=== PATIENT | male | born 1950 | race Hispanic/Latino ===

== ENCOUNTER 2017-04-27 06:48 | Day surgery (SDC) | payer MEDICARE ==
[2017-04-27 07:30] VITALS: BMI 20.9
--- NOTE | 2017-04-27 08:51 | CP.SDSHP ---
Same Day Surgery H & P - History Proposed Procedure: EGD, REMOVAL OF GASTRIC F.B. Pre-Op Diagnosis: SEE NOTES - Previous Medical/Surgical History Cardiac: Hypertension, Hx of CHF Pulmonary: Asthma Neuro: Other Misc: Other Previous Surgical History: S/P. PEG - Allergies Allergies: Allergies No Known Allergies Allergy (Verified 04/27/17 07:30) - Physical Exam General Appearance: N Vital Signs: Vital Signs 04/27/17 07:00 Temperature 97.5 F L Pulse Rate 80 Respiratory 20 Rate Blood Pressure 123/80 O2 Sat by Pulse 98 Oximetry Mental Status: Alert & Oriented x3 Neuro: WNL Heart: Other Lungs: Other GI: WNL - {Optional Preform as Required} Breast: WNL Abdomen: Other Rectal: Other Integument: WNL : WNL Ortho: Other ENT: WNL - Impression Pt. Evaluated Today:Candidate for Anesthesia & Procedure: Yes - Date & Time Time: 08:51 Short Stay Discharge - Short Stay Discharge Admitting Diagnosis/Reason for Visit: ENCOUNTER FOR ATTENTION TO GASTROSTOMY Disposition: HOME/ ROUTINE
[2017-04-27] MEDS ORDERED: metroNIDAZOLE IV 500 mg/100 ml 250 MG in Premixed IV 1 EA IVPB STA (08:52)
[2017-04-27] MEDS ORDERED: Propofol 10 mg/ml Inj (20 ML) ONE (08:55)
[2017-04-27 10:02] VITALS: TEMP 98.6
[2017-04-27 10:03] VITALS: O2SAT 100
[2017-04-27 12:24] VITALS: RESP 21
[2017-04-27 12:27] VITALS: BP 120/75; PULSE 96
== END 2017-04-27 12:12 | disposition home or self-care (01) ==
LOC: C.ENDO 06:48
PROVIDERS: ATTEND Specialist
DX: Z43.1 Encounter for attention to gastrostomy (principal); K21.0 Gastro-esophageal reflux disease with esophagitis; K44.9 Diaphragmatic hernia without obstruction or gangrene
CPT/HCPCS: 43247; 88300; J0696; J2704

== ENCOUNTER 2017-04-29 22:28 | Inpatient (IN) | payer MEDICARE ==
[2017-04-29 22:28] VITALS: BMI 20.9
--- NOTE | 2017-04-29 23:11 | C.PDOC ---
History Of Present Illness Patient sent to the ER from long term for abnormal blood work, he also complains of left flank pain, associated with painful and bloody urination. Patient reports he had his peg tube removed yesterday and tolerated the procedure well. Denies fever or chills. Time Seen by Provider: 04/29/17 23:11 Chief Complaint (Nursing): Abnormal Labs History Per: Patient History/Exam Limitations: no limitations Onset/Duration Of Symptoms: Hrs Current Symptoms Are (Timing): Still Present Severity: Moderate Pain Scale Rating Of: 4 Reports Recently: Treated By A Physician, Hospitalized Recent travel outside of the [place]: No Additional History Per: Patient Past Medical History Reviewed: Historical Data, Nursing Documentation, Vital Signs Vital Signs: Last Vital Signs Temp 97.7 F 04/29/17 22:31 Pulse 91 H 04/29/17 22:31 Resp 16 04/29/17 22:31 BP 120/76 04/29/17 22:31 Pulse Ox 96 04/29/17 23:59 - Medical History PMH: Anxiety, Cardia Arrhythmia (ATRIAL FIBRILLATION), Depression, HTN, Pneumonia (KLEBSIELLA), Chronic Kidney Disease, TIA (UNCONFIRMED BY DIAGNOSTICS) Surgical History: Endoscopy (WITH PEG) Family History: States: No Known Family Hx - Social History Hx Alcohol Use: No Hx Substance Use: No - Immunization History Hx Tetanus Toxoid Vaccination: Yes Hx Influenza Vaccination: Yes Hx Pneumococcal Vaccination: Yes Review Of Systems Constitutional: Negative for: Fever, Chills Gastrointestinal: Negative for: Abdominal Pain Genitourinary: Positive for: Dysuria, Hematuria Musculoskeletal: Positive for: Back Pain (Left flank) Physical Exam - Physical Exam Appears: Non-toxic Skin: Warm, Dry Head: Normacephalic Eye(s): bilateral: Normal Inspection Oral Mucosa: Moist Neck: Supple, Other (Trach in place) Chest: Symmetrical, No Tenderness Cardiovascular: Rhythm Regular Respiratory: No Rales, No Rhonchi, No Wheezing Gastrointestinal/Abdominal: Soft, No Tenderness, Other (Opening from peg site, no erythema or drainage from the site.) Back: No CVA Tenderness Male Genital: No Testicular Tenderness, No Inguinal Tenderness Extremity: No Tenderness Extremity: Bilateral: Atraumatic Pulses: Left Dorsalis Pedis: Normal, Right Dorsalis Pedis: Normal Neurological/Psych: Oriented x3 Gait: Unable To Assess ED Course And Treatment - Laboratory Results Result Diagrams: 04/29/17 23:35 ECG: Interpreted By Me, Viewed By Me ECG Rhythm: Sinus Rhythm (93), Nonspecific Changes O2 Sat by Pulse Oximetry: 96 Pulse Ox Interpretation: Normal - Radiology CXR: Interpreted by Me, Viewed By Me CXR Interpretation: Yes: Other (trach in place, rul consolidation(chronic)). No : COPD, Fracture Progress Note: Blood work, EKG, urinalysis, and CXR ordered. Disposition Discussed With Dr.: Sylvia Reid Comment: accepted the pt on his service and took over the care at 2 AM Doctor Will See Patient In The: Hospital Counseled Patient/Family Regarding: Studies Performed, Diagnosis - Disposition Disposition: HOSPITALIZED Disposition Time: 23:11 Condition: FAIR Forms: [facility] (Salvadorean) - POA Present On Arrival: None - Clinical Impression Clinical Impression: Hematuria, Flank pain, Cystitis - Scribe Statement The provider has reviewed the documentation as recorded by the Scribe Jose Baires All medical record entries made by the Scribe were at my direction and personally dictated by me. I have reviewed the chart and agree that the record accurately reflects my personal performance of the history, physical exam, medical decision making, and the department course for this patient. I have also personally directed, reviewed, and agree with the discharge instructions and disposition. Decision To Admit - Pt Status Changed To: Hospital Disposition Of: Inpatient - Admit Certification Admit to Inpatient:: After my assessment, the patient will require hospitalization for at least two midnights. This is because of the severity of symptoms shown, intensity of services needed, and/or the medical risk in this patient being treated as an outpatient. - InPatient: Physician Admission Certification: I certify that this patient requires 2 or more midnights of care for the following reason:: After my assessment, the patient will require hospitalization for at least two midnights. This is because of the severity of symptoms shown, intensity of services needed, and/or the medical risk in this patient being treated as an outpatient. - . Bed Request Type: Regular Admitting Physician: Sylvia Reid Patient Diagnosis: Hematuria, Flank pain, Cystitis
[2017-04-29 23:40] LABS: VENOUS BLOOD GAS PCO2 44 mmHg (40-60); VENOUS BLOOD GAS PO2 41 mm/Hg (30-55); VENOUS BLOOD PH 7.44 (7.32-7.43)
[2017-04-29 23:46] LABS: BASO # 0.1 K/uL (0.0-0.2); BASO % 0.5 % (0.0-2.0); EOS # 0.1 K/uL (0.0-0.7); EOS % 1.1 % (0.0-4.0); LYMPH # 3.6 K/uL (1.0-4.3); LYMPH % 27.5 % (20.0-40.0); MEAN CELL VOLUME 79.5 fL (80.0-94.0); MEAN CORPUSCULAR HEMOGLOBIN 26.6 pg (27.0-31.0); MEAN CORPUSCULAR HGB CONC 33.4 g/dL (33.0-37.0); MEAN PLATELET VOLUME 7.6 fL (7.2-11.7); MONO # 0.8 K/uL (0.0-0.8); MONO % 6.5 % (0.0-10.0); NEUT # 8.4 K/uL (1.8-7.0); NEUT % 64.4 % (50.0-75.0); NRBC % 0.3 % (0.0-2.0); RBC 4.89 Mil/uL (4.40-5.90); RED CELL DISTRIBUTION WIDTH 17.7 % (11.5-14.5); WHITE BLOOD COUNT 13.1 K/uL (4.8-10.8)
[2017-04-29 23:56] LABS: INR 1.2
[2017-04-30] MEDS ORDERED: Sodium Chloride 0.9% 1,000 ML IV ONE (00:52)
--- NOTE | 2017-04-30 01:46 | CT ---
EXAM: CT Abdomen and Pelvis Without Intravenous Contrast CLINICAL HISTORY: 66 years old, male; Pain; Abdominal pain; Additional info: Left flank pain, hematuria TECHNIQUE: Axial computed tomography images of the abdomen and pelvis without intravenous contrast. All CT scans at this facility use one or more dose reduction techniques, viz.: automated exposure control; ma/kV adjustment per patient size (including targeted exams where dose is matched to indication; i.e. head); or iterative reconstruction technique. 664 images are submitted.Limitations: Absence of IV contrast decreases sensitivity for detecting vascular and visceral injury and abnormality. Coronal and sagittal reformatted images were created and reviewed. COMPARISON: No relevant prior studies available. FINDINGS: Lower thorax: Small right lower effusion. There is mild bronchiectasis in the right middle lobe and bilateral lower lobes right more than left. There is right lower lobe consolidation and infiltrate with architectural distortion. These findings can represent sequela of chronic lung disease versus chronic aspiration. Correlation with clinical data is recommended if an acute pulmonary process pneumonia is clinically suspected. ABDOMEN:Limitations: Absence of IV contrast decreases sensitivity for detecting vascular and visceral injury and abnormality. Liver: Enlarged liver. Gallbladder and bile ducts: Partially distended gallbladder with hyperdense gallstones. Pancreas: Unremarkable. No ductal dilation. Spleen: Splenomegaly measuring 15 cm. Adrenals: Nonspecific thickening of the left adrenal gland. Normal right adrenal gland. Kidneys and ureters: There is moderate left hydroureteronephrosis without a calcified ureteral stone likely due to ureteral obstruction at the level of UVJ secondary to bladder mass versus edema. Unremarkable right kidney. Stomach and bowel: There are nonspecific fluid filled small bowel loops. These findings can represent ileus versus enteritis versus slow transit versus peristalsis. Moderate amount of stool in the colon. Nonspecific colonic wall thickening. Correlation with patient's clinical history of constipation versus stool related colitis versus under distention is recommended. Nonspecific gastric thickening likely due to under distention. Correlation with clinical data is recommended if gastritis is suspected. Appendix: Normal appendix. PELVIS: Bladder: There is diffuse bladder wall thickening measuring 2.8 cm with perivesical inflammatory change. The differential considerations would include cystitis versus transitional cell carcinoma. Reproductive: Unremarkable. ABDOMEN and PELVIS: Intraperitoneal space: Unremarkable. No free air. No significant fluid collection. Bones/joints: Multilevel vacuum degenerative disc disease. No acute fracture. No dislocation. Soft tissues: Unremarkable. Vasculature: The aorta demonstrates calcified plaque and is mildly ectatic but normal in caliber. No abdominal aortic aneurysm. Lymph nodes: Unremarkable. No enlarged lymph nodes. IMPRESSION: 1. There is diffuse bladder wall thickening measuring 2.8 cm with perivesical inflammatory change. The differential considerations would include cystitis versus transitional cell carcinoma. 2. There is moderate left hydroureteronephrosis without a calcified ureteral stone likely due to ureteral obstruction at the level of UVJ secondary to bladder mass versus edema. 3. Small right lower effusion. There is mild bronchiectasis in the right middle lobe and bilateral lower lobes right more than left. There is right lower lobe consolidation and infiltrate with architectural distortion. These findings can represent sequela of chronic lung disease versus chronic aspiration. Correlation with clinical data is recommended if an acute pulmonary process pneumonia is clinically suspected. 4. Partially distended gallbladder with gallstones. 5. Splenomegaly. Hepatomegaly. Correlation with internal medicine urology clinical history and evaluation and further workup or followup as recommended by patient's clinical data.
[2017-04-30 01:48] LABS: URINE BILIRUBIN NEGATIVE (NEGATIVE); URINE BLOOD 3+ (NEGATIVE); URINE CLARITY Hazy (Clear); URINE COLOR Red (YELLOW); URINE GLUCOSE (UA) NORMAL (Normal); URINE LEUKOCYTE ESTERASE 3+ Leu/uL (Negative); URINE NITRATE NEGATIVE (NEGATIVE); URINE PROTEIN 2+ mg/dL (NEGATIVE); URINE UROBILINOGEN NORMAL mg/dL (0.2-1.0); WBC CLUMPS MANY /hpf
[2017-04-30] MEDS ORDERED: Piperacillin/Tazobact 3.375 gm 100 ML IVPB STA (01:59)
[2017-04-30] MEDS ORDERED: Piperacill/Tazo 3.375gm in Dex 3.375 GM/50 ML BAG IVPB STA (02:05)
[2017-04-30] MEDS ORDERED: guaiFENesin DM 100 mg-10 mg/5 ml UD PO PRN (03:01)
[2017-04-30 03:12] LABS: ALBUMIN 3.7 g/dL (3.5-5.0); ALT/SGPT 7 U/L (21-72); AST/SGOT 19 U/L (17-59); BLOOD UREA NITROGEN 23 mg/dL (9-20); CALCIUM 11.5 mg/dl (8.6-10.4); GFR AFRICAN-AMERICAN > 60; GFR NON-AFRICAN AMERICAN > 60
[2017-04-30 03:17] LABS: ALB/GLOB RATIO 0.7 (1.0-2.1)
--- NOTE | 2017-04-30 07:31 | RAD ---
PROCEDURE: CHEST RADIOGRAPH, 1 VIEW HISTORY: SOB COMPARISON: None available. FINDINGS: LUNGS: Large cavitary mass right upper lobe. Although portable x-ray can be someone imprecise, the finding measures 9.3 x 18 cm. PLEURA: No pneumothorax or pleural fluid seen. CARDIOVASCULAR: Normal. OSSEOUS STRUCTURES: No significant abnormalities. VISUALIZED UPPER ABDOMEN: Normal. OTHER FINDINGS: Satisfactory position of tracheostomy device. IMPRESSION: Large cavitary mass right upper lobe.
[2017-04-30] MEDS ORDERED: guaiFENesin DM 200 mg-20 mg/10 ml UD ONE (08:35)
[2017-04-30] MEDS ORDERED: Albuterol-Ipratrop 3 mg / 0.5 (3 ml) UD ONE (09:54)
[2017-04-30] MEDS ORDERED: Enoxaparin 40 mg Syringe ONE (10:23)
[2017-04-30] MEDS: Enoxaparin 40 mg Syringe SC SCH (10:38)
[2017-04-30] MEDS: Metoprolol Succinate 50 mg XL Tab PO SCH ×2 (10:38→22:11)
[2017-04-30] MEDS: Albuterol 0.083% Inhal Sol (2.5 mg/3 mL) UD IH SCH ×2 (12:13→16:39)
[2017-04-30] MEDS ORDERED: Oxycodone/Acetaminophen 5/325 mg Tab ONE (14:13)
[2017-04-30] MEDS: Oxycodone/Acetaminophen 5/325 mg Tab PO PRN (14:13)
[2017-04-30] MEDS: Sodium Chloride 0.9% 1,000 ML IV SCH (18:20)
--- NOTE | 2017-04-30 21:53 | CP.PCM.HP ---
Past Patient History - Past Medical History & Family History Past Medical History?: Yes - Past Social History Smoking Status: Former Smoker - CARDIAC Hx Cardia Arrhythmia: Yes (ATRIAL FIBRILLATION) Hx Hypertension: Yes - PULMONARY Hx Pneumonia: Yes (KLEBSIELLA) - NEUROLOGICAL Hx Transient Ischemic Attacks (TIA): Yes (UNCONFIRMED BY DIAGNOSTICS) - HEENT Hx HEENT Problems: No Hx Difficulty Chewing: No - RENAL Hx Chronic Kidney Disease: Yes - ENDOCRINE/METABOLIC Hx Endocrine Disorders: No - HEMATOLOGICAL/ONCOLOGICAL Hx Blood Disorders: No Hx Blood Transfusions: No - INTEGUMENTARY Hx Dermatological Problems: Yes Other/Comment: DRY SCALINESS BLE - MUSCULOSKELETAL/RHEUMATOLOGICAL Hx Fractures: No - GASTROINTESTINAL Hx Gastrointestinal Disorders: Yes 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) - GENITOURINARY/GYNECOLOGICAL Hx Genitourinary Disorders: Yes Hx Incontinence: Yes Hx Urinary Tract Infection: No - PSYCHIATRIC Hx Anxiety: Yes Hx Depression: Yes Hx Substance Use: No - SURGICAL HISTORY Hx Surgeries: Yes Other/Comment: DENTAL EXTRACTIONS, HEMORRHOIDS - ANESTHESIA Hx Anesthesia: Yes Hx Anesthesia Reactions: No Hx Malignant Hyperthermia: No Meds Allergies/Adverse Reactions: Allergies Allergy/AdvReac Type Severity Reaction Status Date / Time No Known Allergies Allergy Verified 04/29/17 22:41 Physical Exam - Constitutional Appears: Well - Head Exam Head Exam: ATRAUMATIC, NORMAL INSPECTION, NORMOCEPHALIC - Eye Exam Eye Exam: EOMI, Normal appearance, PERRL Pupil Exam: NORMAL ACCOMODATION, PERRL - ENT Exam ENT Exam: Mucous Membranes Moist, Normal Exam - Neck Exam Neck exam: Positive for: Normal Inspection - Respiratory Exam Respiratory Exam: Decreased Breath Sounds - Cardiovascular Exam Cardiovascular Exam: REGULAR RHYTHM, +S1, +S2 - GI/Abdominal Exam GI & Abdominal Exam: Diminished Bowel Sounds, Soft - Rectal Exam Rectal Exam: Deferred Results - Vital Signs Recent Vital Signs: Last Vital Signs Temp 98.1 F 04/30/17 18:30 Pulse 91 H 04/30/17 16:32 Resp 18 04/30/17 16:32 BP 148/90 04/30/17 18:27 Pulse Ox 100 04/30/17 16:32 - Labs Result Diagrams: 04/29/17 23:35 04/30/17 03:03 Labs: Laboratory Results - last 24 hr 04/29/17 04/29/17 04/29/17 23:35 23:35 23:35 WBC 13.1 H RBC 4.89 Hgb 13.0 Hct 38.9 MCV 79.5 L MCH 26.6 L MCHC 33.4 RDW 17.7 H Plt Count 366 MPV 7.6 Neut % (Auto) 64.4 Lymph % (Auto) 27.5 George % (Auto) 6.5 Eos % (Auto) 1.1 Baso % (Auto) 0.5 Neut # 8.4 H Lymph # 3.6 George # 0.8 Eos # 0.1 Baso # 0.1 PT 13.0 H INR 1.2 APTT 31 pO2 41 VBG pH 7.44 H VBG pCO2 44 VBG HCO3 28.3 VBG Total CO2 31.3 H VBG O2 Sat (Calc) 80.6 H VBG Base Excess 5.0 H VBG Potassium 3.7 Sodium 138.0 Chloride 104.0 Glucose 100 Lactate 1.1 Potassium Carbon Dioxide Anion Gap BUN Creatinine Est GFR ( Amer) Est GFR (Non-Af Amer) Random Glucose Calcium Magnesium Total Bilirubin AST ALT Alkaline Phosphatase Total Protein Albumin Globulin Albumin/Globulin Ratio Venous Blood Potassium 3.7 Urine Color Urine Clarity Urine pH Ur Specific [place] Urine Protein Urine Glucose (UA) Urine Ketones Urine Blood Urine Nitrate Urine Bilirubin Urine Urobilinogen Ur Leukocyte Esterase Urine WBC (Auto) Urine RBC (Auto) Urine WBC Clumps (Auto) Urine Yeast (Budding) 04/29/17 04/30/17 04/30/17 23:35 01:40 03:03 WBC RBC Hgb Hct MCV MCH MCHC RDW Plt Count MPV Neut % (Auto) Lymph % (Auto) [place] % (Auto) Eos % (Auto) Baso % (Auto) Neut # Lymph # George # Eos # Baso # PT INR APTT pO2 VBG pH VBG pCO2 VBG HCO3 VBG Total CO2 VBG O2 Sat (Calc) VBG Base Excess VBG Potassium Sodium 136 Chloride 97 L Glucose Lactate Potassium 4.0 Carbon Dioxide 28 Anion Gap 14 BUN 23 H Creatinine 0.9 Est GFR ( Amer) > 60 Est GFR (Non-Af Amer) > 60 Random Glucose 112 H Calcium 11.5 H Magnesium 1.8 Total Bilirubin 0.5 AST 19 ALT 7 L Alkaline Phosphatase 80 Total Protein 9.0 H Albumin 3.7 Globulin 5.3 H Albumin/Globulin Ratio 0.7 L Venous Blood Potassium Urine Color Red Urine Clarity Hazy Urine pH 5.0 Ur Specific [place] 1.017 Urine Protein 2+ H Urine Glucose (UA) Normal Urine Ketones Negative Urine Blood 3+ H Urine Nitrate Negative Urine Bilirubin Negative Urine Urobilinogen Normal Ur Leukocyte Esterase 3+ H Urine WBC (Auto) 1603 H Urine RBC (Auto) 1754 H Urine WBC Clumps (Auto) Many H Urine Yeast (Budding) Mod H
[2017-05-01] MEDS: Oxycodone/Acetaminophen 5/325 mg Tab PO PRN ×4 (01:22→19:18)
--- NOTE | 2017-05-01 02:24 | CON ---
HEMATOLOGY AND ONCOLOGY CONSULT DATE: REASON FOR CONSULT: Hematuria, rule out bladder cancer. HISTORY OF PRESENT ILLNESS: This is a 66-year-old male who was recently discharged from the hospital for pneumonia status post trach, was in the rehab when he started having left flank pain associated with painful and bloody urination. The patient states his PEG tube was removed two days ago. Tolerated the procedure well, but came in now with hematuria and also was found to have hypercalcemia, hence Hematology consult has been requested. PAST MEDICAL HISTORY: Atrial fibrillation, depression, hypertension, pneumonia, chronic kidney disease, TIA, PEG status post reversal. SOCIAL HISTORY: Nonsmoker, nondrinker. FAMILY HISTORY: No known family history of any malignancy. PHYSICAL EXAMINATION: VITAL SIGNS: Temperature is 98.2. HEENT/NECK: Shows the trach in place. CHEST: Bilateral air entry is fair. CARDIOVASCULAR: S1 and S2, regular rate and rhythm. ABDOMEN: Soft. Opening from PEG site noted, mild drainage from on the site. EXTREMITIES: No edema. LABORATORY DATA: Show a white count of 13, hemoglobin of 13, platelets of 366, calcium of 11.7. CAT scan of the abdomen and pelvis showed thickening cystitis/inflammation, rule out bladder cancer. ASSESSMENT AND PLAN: This 66-year-old male with hematuria will need a cystoscopy by Dr. Meade to determine the etiology of this hematuria. We will continue with intravenous fluids for his hypercalcemia. We will monitor H and H carefully. We will follow the patient after cystoscopy for further recommendation. Thank you for the consult. We will follow the patient with you. Clarice Franks MD
[2017-05-01] MEDS: Sodium Chloride 0.9% 1,000 ML IV SCH ×2 (04:00→18:23)
[2017-05-01] MEDS: guaiFENesin DM 200 mg-20 mg/10 ml UD PO PRN ×3 (06:38→18:18)
[2017-05-01 08:02] LABS: BASO # 0.1 K/uL (0.0-0.2); BASO % 0.5 % (0.0-2.0); EOS # 0.5 K/uL (0.0-0.7); EOS % 4.3 % (0.0-4.0); LYMPH # 2.7 K/uL (1.0-4.3); MEAN CORPUSCULAR HEMOGLOBIN 26.1 pg (27.0-31.0); MEAN CORPUSCULAR HGB CONC 32.3 g/dL (33.0-37.0); MEAN PLATELET VOLUME 7.3 fL (7.2-11.7); MONO # 0.6 K/uL (0.0-0.8); MONO % 5.1 % (0.0-10.0); NEUT # 8.2 K/uL (1.8-7.0); NEUT % 68.1 % (50.0-75.0); RBC 4.14 Mil/uL (4.40-5.90); RED CELL DISTRIBUTION WIDTH 17.6 % (11.5-14.5); WHITE BLOOD COUNT 12.1 K/uL (4.8-10.8)
[2017-05-01 08:07] LABS: HEMOGLOBIN 10.8 g/dL (12.0-18.0)
[2017-05-01 08:21] LABS: ALB/GLOB RATIO 0.8 (1.0-2.1); ALBUMIN 3.2 g/dL (3.5-5.0); ALT/SGPT 9 U/L (21-72); AST/SGOT 22 U/L (17-59); BLOOD UREA NITROGEN 18 mg/dL (9-20); CALCIUM 10.4 mg/dl (8.6-10.4); GFR AFRICAN-AMERICAN > 60; GFR NON-AFRICAN AMERICAN > 60
--- NOTE | 2017-05-01 09:16 | CT ---
CT abdomen and pelvis History: Hematuria. Acute cystitis. Comparison: 04/30/2017 Technique: Multiple contiguous axial images were performed through the abdomen and pelvis without the use of intravenous contrast. Subsequently, sagittal and coronal reformatted images were obtained. This CT exam was performed using one or more of the following dose reduction techniques: Automated exposure control, adjustment of the mA and/or kV according to patient size, and/or use of iterative reconstruction technique. Findings: Small right pleural effusion. Prominent bronchiectatic changes seen throughout both lungs most prominent at the right lung base. Atelectatic changes seen within the right middle lobe anteriorly. Confluent consolidative changes seen within the right lower lobe with associated focal nodular consolidation and or scarring. No pleural or pericardial effusion. Coronary calcifications. Hepatomegaly. Distended gallbladder. Splenomegaly. Nodular thickening of the bilateral adrenal glands; left greater than right. Fatty atrophy of the pancreas Limited visualization of the pancreas appears grossly preserved. Distended stomach. Right kidney: Mild fullness of the right renal collecting system. Left Kidney: Persistent moderate to severe left hydroureteronephrosis extending to the level of the left ureterovesicular junction. Marked thickening is again noted throughout the urinary bladder with some more heterogeneous increased attenuation at the posterior aspect of the bladder. This may represent a severe acute cystitis versus transitional cell carcinoma versus additional etiology. Clinical correlation. Moderate fecal retention in the colon. Appendix appears to be partially visualized and within normal limits. Prominent calcification and plaque within the aorta. Few shotty para-aortic and mesenteric lymph nodes. Prominent degenerative changes in the spine and hips. Impression: 1. Persistent moderate to severe left hydroureteronephrosis extending to the level of the left ureterovesicular junction. 2. Marked thickening is again noted throughout the urinary bladder with some more heterogeneous increased attenuation at the posterior aspect of the bladder. This may represent a severe acute cystitis versus transitional cell carcinoma versus additional etiology. Clinical correlation. 3. Additional findings as above.
[2017-05-01] MEDS: Enoxaparin 40 mg Syringe SC SCH (12:30)
[2017-05-01] MEDS: Metoprolol Succinate 50 mg XL Tab PO SCH ×2 (12:40→22:30)
--- NOTE | 2017-05-01 14:54 | CP.PCM.PN ---
Subjective - Date & Time of Evaluation Date of Evaluation: 05/01/17 Time of Evaluation: 07:20 - Subjective Subjective: clinically same Objective - Vital Signs/Intake and Output Vital Signs (last 24 hours): Temp Pulse Resp BP Pulse Ox 98.2 F 73 20 110/70 98 04/30/17 23:46 04/30/17 23:46 04/30/17 23:46 05/01/17 10:41 04/30/17 23:46 Intake and Output: 05/01/17 05/01/17 06:59 18:59 Intake Total 1450 Output Total 1850 Balance -400 - Medications Medications: Current Medications Acetaminophen (Tylenol 325mg Tab) 650 mg PO QID PRN PRN Reason: Pain, Mild (1-3) Last Admin: 05/01/17 10:38 Dose: 650 mg Albuterol Sulfate (Albuterol 0.083% Inhal Rosalina (2.5 Mg/3 Ml) Ud) 2.5 mg IH RTID [facility] Last Admin: 04/30/17 16:39 Dose: 2.5 mg Famotidine (Pepcid) 20 mg PO HS [facility] Last Admin: 04/30/17 22:12 Dose: 20 mg Folic Acid (Folic Acid) 1 mg PO DAILY [facility] Last Admin: 05/01/17 10:37 Dose: 1 mg Furosemide (Lasix) 20 mg PO BID [facility] Last Admin: 05/01/17 10:41 Dose: 20 mg Guaifenesin/Dextromethorphan (Robitussin Dm) 10 ml PO QID PRN PRN Reason: Cough Last Admin: 05/01/17 10:37 Dose: 10 ml Sodium Chloride (Sodium Chloride 0.9%) 1,000 mls @ 100 mls/hr IV .Q10H [facility] Last Admin: 05/01/17 04:00 Dose: 100 mls/hr Metoprolol Succinate (Toprol Xl) 50 mg PO Q12 [facility] Last Admin: 05/01/17 12:40 Dose: 50 mg Oxycodone/Acetaminophen (Percocet 5/325 Mg Tab) 1 tab PO Q6H PRN PRN Reason: pain Stop: 05/03/17 14:07 Last Admin: 05/01/17 12:40 Dose: 1 tab Zolpidem Tartrate (Ambien) 5 mg PO HS PRN PRN Reason: Insomnia Last Admin: 04/30/17 22:13 Dose: 5 mg - Labs Labs: 05/01/17 07:44 05/01/17 07:44 PT 13.0 SECONDS (9.7-12.2) H 04/29/17 23:35 INR 1.2 04/29/17 23:35 APTT 31 SECONDS (21-34) 04/29/17 23:35 - Constitutional Appears: Well - Head Exam Head Exam: ATRAUMATIC, NORMAL INSPECTION, NORMOCEPHALIC - Eye Exam Eye Exam: EOMI, Normal appearance, PERRL Pupil Exam: NORMAL ACCOMODATION, PERRL - ENT Exam ENT Exam: Mucous Membranes Moist, Normal Exam - Neck Exam Neck Exam: Full ROM, Normal Inspection. absent: Lymphadenopathy - Respiratory Exam Respiratory Exam: Decreased Breath Sounds - Cardiovascular Exam Cardiovascular Exam: REGULAR RHYTHM, +S1, +S2 - GI/Abdominal Exam GI & Abdominal Exam: Soft, Diminished Bowel Sounds - Rectal Exam Rectal Exam: Deferred
--- NOTE | 2017-05-01 21:23 | PCM.URO ---
Urology Progress Note - Objective Lab Studies: Reviewed (hematuria, voiding dysfunction plans: cystoscopy / 05/03) Lab Results Last 24 Hours: Laboratory Results - last 24 hr 04/30/17 05/01/17 05/01/17 07:06 07:44 07:44 WBC 12.1 H RBC 4.14 L Hgb 10.8 L D Hct 33.5 L MCV 81.0 MCH 26.1 L MCHC 32.3 L RDW 17.6 H Plt Count 320 MPV 7.3 Neut % (Auto) 68.1 Lymph % (Auto) 22.0 [place] % (Auto) 5.1 Eos % (Auto) 4.3 H Baso % (Auto) 0.5 Neut # 8.2 H Lymph # 2.7 [place] # 0.6 Eos # 0.5 Baso # 0.1 Sodium 133 Potassium 3.8 Chloride 102 Carbon Dioxide 26 Anion Gap 9 L BUN 18 Creatinine 0.8 Est GFR ( Amer) > 60 Est GFR (Non-Af Amer) > 60 Random Glucose 88 Calcium 10.4 Ionized Calcium 6.8 H Total Bilirubin 0.5 AST 22 ALT 9 L D Alkaline Phosphatase 58 Total Protein 7.3 Albumin 3.2 L Globulin 4.2 H Albumin/Globulin Ratio 0.8 L Prostate Specific Ag 05/01/17 07:44 WBC RBC Hgb Hct MCV MCH MCHC RDW Plt Count MPV Neut % (Auto) Lymph % (Auto) [place] % (Auto) Eos % (Auto) Baso % (Auto) Neut # Lymph # [place] # Eos # Baso # Sodium Potassium Chloride Carbon Dioxide Anion Gap BUN Creatinine Est GFR ( Amer) Est GFR (Non-Af Amer) Random Glucose Calcium Ionized Calcium Total Bilirubin AST ALT Alkaline Phosphatase Total Protein Albumin Globulin Albumin/Globulin Ratio Prostate Specific Ag 1.55 Intake & Output: Intake & Output 05/01/17 05/01/17 05/02/17 06:59 18:59 06:59 Intake Total 1450 1200 Output Total 1850 1000 Balance -400 200 Intake: Intake, IV Amount 1200 800 Right Antecubital 1200 800 Oral 250 400 Output: Urine 1850 1000 Condom 1000 1000 Urethral (Juarez) 850 Other: Voiding Method Incontinent Vital Signs: Vital Signs - 24 hr 04/30/17 05/01/17 05/01/17 23:46 08:00 10:41 Temperature 98.2 F 98 F Pulse Rate 73 75 Respiratory 20 20 Rate Blood Pressure 111/70 110/70 110/70 O2 Sat by Pulse 98 99 Oximetry 05/01/17 05/01/17 16:00 18:18 Temperature 98.4 F Pulse Rate 84 Respiratory 20 Rate Blood Pressure 157/90 H 157/90 H O2 Sat by Pulse 100 Oximetry
[2017-05-02] MEDS: Sodium Chloride 0.9% 1,000 ML IV SCH ×5 (00:11→20:00)
[2017-05-02] MEDS: Oxycodone/Acetaminophen 5/325 mg Tab PO PRN ×3 (06:08→18:55)
[2017-05-02 08:22] LABS: BASO % 0.3 % (0.0-2.0); EOS # 0.6 K/uL (0.0-0.7); EOS % 4.9 % (0.0-4.0); HEMOGLOBIN 11.5 g/dL (12.0-18.0); LYMPH # 4.2 K/uL (1.0-4.3); LYMPH % 33.2 % (20.0-40.0); MEAN CELL VOLUME 81.2 fL (80.0-94.0); MEAN CORPUSCULAR HEMOGLOBIN 26.5 pg (27.0-31.0); MEAN CORPUSCULAR HGB CONC 32.7 g/dL (33.0-37.0); MEAN PLATELET VOLUME 7.5 fL (7.2-11.7); MONO # 0.7 K/uL (0.0-0.8); MONO % 5.6 % (0.0-10.0); NEUT # 7.1 K/uL (1.8-7.0); NRBC % 0.1 % (0.0-2.0); RBC 4.32 Mil/uL (4.40-5.90); RED CELL DISTRIBUTION WIDTH 18.2 % (11.5-14.5); WHITE BLOOD COUNT 12.7 K/uL (4.8-10.8)
[2017-05-02 08:36] LABS: ALB/GLOB RATIO 0.7 (1.0-2.1); ALBUMIN 3.3 g/dL (3.5-5.0); ALT/SGPT 12 U/L (21-72); AST/SGOT 16 U/L (17-59); BLOOD UREA NITROGEN 17 mg/dL (9-20); CALCIUM 10.4 mg/dl (8.6-10.4); GFR AFRICAN-AMERICAN > 60; GFR NON-AFRICAN AMERICAN > 60
[2017-05-02] MEDS: guaiFENesin DM 200 mg-20 mg/10 ml UD PO PRN ×3 (08:53→22:03)
[2017-05-02] MEDS: Metoprolol Succinate 50 mg XL Tab PO SCH ×2 (09:13→22:06)
--- NOTE | 2017-05-02 17:55 | CP.PCM.PN ---
Subjective - Date & Time of Evaluation Date of Evaluation: 05/02/17 Time of Evaluation: 07:20 - Subjective Subjective: clinically same Objective - Vital Signs/Intake and Output Vital Signs (last 24 hours): Temp Pulse Resp BP Pulse Ox 98.2 F 81 20 158/88 H 100 05/02/17 16:00 05/02/17 16:00 05/02/17 16:00 05/02/17 17:26 05/02/17 16:00 Intake and Output: 05/02/17 05/02/17 06:59 18:59 Intake Total 2280 1200 Output Total 2700 1200 Balance -420 0 - Medications Medications: Current Medications Acetaminophen (Tylenol 325mg Tab) 650 mg PO QID PRN PRN Reason: Pain, Mild (1-3) Last Admin: 05/02/17 15:32 Dose: 650 mg Albuterol Sulfate (Albuterol 0.083% Inhal Rosalina (2.5 Mg/3 Ml) Ud) 2.5 mg IH RTID [facility] Last Admin: 04/30/17 16:39 Dose: 2.5 mg Famotidine (Pepcid) 20 mg PO HS [facility] Last Admin: 05/01/17 22:30 Dose: 20 mg Folic Acid (Folic Acid) 1 mg PO DAILY [facility] Last Admin: 05/02/17 09:12 Dose: 1 mg Furosemide (Lasix) 20 mg PO BID [facility] Last Admin: 05/02/17 17:26 Dose: 20 mg Guaifenesin/Dextromethorphan (Robitussin Dm) 10 ml PO QID PRN PRN Reason: Cough Last Admin: 05/02/17 15:32 Dose: 10 ml Sodium Chloride (Sodium Chloride 0.9%) 1,000 mls @ 100 mls/hr IV .Q10H [facility] Last Admin: 05/02/17 16:15 Dose: 100 mls/hr Metoprolol Succinate (Toprol Xl) 50 mg PO Q12 [facility] Last Admin: 05/02/17 09:13 Dose: 50 mg Oxycodone/Acetaminophen (Percocet 5/325 Mg Tab) 1 tab PO Q6H PRN PRN Reason: pain Stop: 05/03/17 14:07 Last Admin: 05/02/17 12:33 Dose: 1 tab Zolpidem Tartrate (Ambien) 5 mg PO HS PRN PRN Reason: Insomnia Last Admin: 05/01/17 22:30 Dose: 5 mg - Labs Labs: 05/02/17 08:16 05/02/17 08:16 PT 13.0 SECONDS (9.7-12.2) H 04/29/17 23:35 INR 1.2 04/29/17 23:35 APTT 31 SECONDS (21-34) 04/29/17 23:35 - Constitutional Appears: Well - Head Exam Head Exam: ATRAUMATIC, NORMAL INSPECTION, NORMOCEPHALIC - Eye Exam Eye Exam: EOMI, Normal appearance, PERRL Pupil Exam: NORMAL ACCOMODATION, PERRL - ENT Exam ENT Exam: Mucous Membranes Moist, Normal Exam - Respiratory Exam Respiratory Exam: Decreased Breath Sounds - Cardiovascular Exam Cardiovascular Exam: REGULAR RHYTHM, +S1, +S2 - GI/Abdominal Exam GI & Abdominal Exam: Soft, Diminished Bowel Sounds - Rectal Exam Rectal Exam: Deferred
--- NOTE | 2017-05-02 18:57 | CP.PCM.CON ---
Past Patient History - Past Medical History & Family History Past Medical History?: Yes - Past Social History Smoking Status: Never Smoked - CARDIAC Hx Cardiac Disorders: Yes Hx Cardia Arrhythmia: Yes (ATRIAL FIBRILLATION) Hx Hypertension: Yes - PULMONARY Hx Respiratory Disorders: Yes Hx Pneumonia: Yes (KLEBSIELLA) - NEUROLOGICAL Hx Neurological Disorder: Yes Hx Transient Ischemic Attacks (TIA): Yes (UNCONFIRMED BY DIAGNOSTICS) - HEENT Hx HEENT Problems: No Hx Difficulty Chewing: No - RENAL Hx Chronic Kidney Disease: Yes - ENDOCRINE/METABOLIC Hx Endocrine Disorders: No - HEMATOLOGICAL/ONCOLOGICAL Hx Blood Disorders: No Hx Blood Transfusions: No - INTEGUMENTARY Hx Dermatological Problems: Yes Other/Comment: DRY SCALINESS BLE - MUSCULOSKELETAL/RHEUMATOLOGICAL Hx Musculoskeletal Disorders: No Hx Falls: No Hx Fractures: No - GASTROINTESTINAL Hx Gastrointestinal Disorders: Yes 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) - GENITOURINARY/GYNECOLOGICAL Hx Genitourinary Disorders: Yes Hx Incontinence: Yes Hx Urinary Tract Infection: No - PSYCHIATRIC Hx Psychophysiologic Disorder: Yes Hx Anxiety: Yes Hx Depression: Yes Hx Substance Use: No - SURGICAL HISTORY Hx Surgeries: Yes Other/Comment: DENTAL EXTRACTIONS, HEMORRHOIDS - ANESTHESIA Hx Anesthesia: Yes Hx Anesthesia Reactions: No Hx Malignant Hyperthermia: No Has any member of the family had a problem w/ anesthesia?: No Meds Allergies/Adverse Reactions: Allergies Allergy/AdvReac Type Severity Reaction Status Date / Time No Known Allergies Allergy Verified 04/29/17 22:41 - Medications Medications: Current Medications Acetaminophen (Tylenol 325mg Tab) 650 mg PO QID PRN PRN Reason: Pain, Mild (1-3) Last Admin: 05/02/17 15:32 Dose: 650 mg Albuterol Sulfate (Albuterol 0.083% Inhal Rosalina (2.5 Mg/3 Ml) Ud) 2.5 mg IH RTID [facility] Last Admin: 04/30/17 16:39 Dose: 2.5 mg Famotidine (Pepcid) 20 mg PO HS [facility] Last Admin: 05/01/17 22:30 Dose: 20 mg Folic Acid (Folic Acid) 1 mg PO DAILY [facility] Last Admin: 05/02/17 09:12 Dose: 1 mg Furosemide (Lasix) 20 mg PO BID [facility] Last Admin: 05/02/17 17:26 Dose: 20 mg Guaifenesin/Dextromethorphan (Robitussin Dm) 10 ml PO QID PRN PRN Reason: Cough Last Admin: 05/02/17 15:32 Dose: 10 ml Sodium Chloride (Sodium Chloride 0.9%) 1,000 mls @ 100 mls/hr IV .Q10H [facility] Last Admin: 05/02/17 16:15 Dose: 100 mls/hr Metoprolol Succinate (Toprol Xl) 50 mg PO Q12 [facility] Last Admin: 05/02/17 09:13 Dose: 50 mg Oxycodone/Acetaminophen (Percocet 5/325 Mg Tab) 1 tab PO Q6H PRN PRN Reason: pain Stop: 05/03/17 14:07 Last Admin: 05/02/17 18:55 Dose: 1 tab Zolpidem Tartrate (Ambien) 5 mg PO HS PRN PRN Reason: Insomnia Last Admin: 05/01/17 22:30 Dose: 5 mg Results - Vital Signs Recent Vital Signs: Last Vital Signs Temp 98.2 F 05/02/17 16:00 Pulse 81 05/02/17 16:00 Resp 20 05/02/17 16:00 BP 158/88 H 05/02/17 17:26 Pulse Ox 100 05/02/17 16:00 - Labs Result Diagrams: 05/02/17 08:16 05/02/17 08:16 Labs: Laboratory Results - last 24 hr 05/02/17 05/02/17 08:16 08:16 WBC 12.7 H RBC 4.32 L Hgb 11.5 L Hct 35.1 MCV 81.2 MCH 26.5 L MCHC 32.7 L RDW 18.2 H Plt Count 337 MPV 7.5 Neut % (Auto) 56.0 Lymph % (Auto) 33.2 Giles % (Auto) 5.6 Eos % (Auto) 4.9 H Baso % (Auto) 0.3 Neut # 7.1 H Lymph # 4.2 Giles # 0.7 Eos # 0.6 Baso # 0.0 Sodium 135 Potassium 4.1 Chloride 101 Carbon Dioxide 27 Anion Gap 11 BUN 17 Creatinine 0.9 Est GFR ( Amer) > 60 Est GFR (Non-Af Amer) > 60 Random Glucose 90 Calcium 10.4 Total Bilirubin 0.5 AST 16 L D ALT 12 L D Alkaline Phosphatase 57 Total Protein 8.0 Albumin 3.3 L Globulin 4.6 H Albumin/Globulin Ratio 0.7 L
[2017-05-03] MEDS: Oxycodone/Acetaminophen 5/325 mg Tab PO PRN ×2 (00:58→10:51)
[2017-05-03 07:40] LABS: BASO % 0.4 % (0.0-2.0); EOS # 0.5 K/uL (0.0-0.7); EOS % 5.5 % (0.0-4.0); HEMOGLOBIN 10.8 g/dL (12.0-18.0); LYMPH # 2.6 K/uL (1.0-4.3); LYMPH % 27.1 % (20.0-40.0); MEAN CELL VOLUME 81.4 fL (80.0-94.0); MEAN CORPUSCULAR HEMOGLOBIN 26.5 pg (27.0-31.0); MEAN CORPUSCULAR HGB CONC 32.6 g/dL (33.0-37.0); MEAN PLATELET VOLUME 7.6 fL (7.2-11.7); MONO # 0.6 K/uL (0.0-0.8); MONO % 6.6 % (0.0-10.0); NEUT # 5.8 K/uL (1.8-7.0); NEUT % 60.4 % (50.0-75.0); RBC 4.08 Mil/uL (4.40-5.90); WHITE BLOOD COUNT 9.5 K/uL (4.8-10.8)
[2017-05-03 08:41] LABS: ALB/GLOB RATIO 0.8 (1.0-2.1); ALBUMIN 3.3 g/dL (3.5-5.0); ALT/SGPT 14 U/L (21-72); AST/SGOT 17 U/L (17-59); BLOOD UREA NITROGEN 21 mg/dL (9-20); CALCIUM 10.3 mg/dl (8.6-10.4); GFR AFRICAN-AMERICAN > 60; GFR NON-AFRICAN AMERICAN > 60
--- NOTE | 2017-05-03 09:07 | CP.PCM.PN ---
Subjective - Date & Time of Evaluation Date of Evaluation: 05/03/17 Time of Evaluation: 10:50 - Subjective Subjective: PGY 2 Medicine Note- Dr. Gemma Reid's service Patient seen and examined in no apparent acute distress. Patient frustrated because he was unsure of when the cystoscopy would be perfomed. Patient stated that he would like to eat afterwards. His urinary catheter was removed. He denies chest pain, fevers, chills, nausea, vomiting, or new urinary complaints at this time. Objective - Vital Signs/Intake and Output Vital Signs (last 24 hours): Temp Pulse Resp BP Pulse Ox 98.4 F 87 20 121/75 100 05/03/17 08:00 05/03/17 08:00 05/03/17 08:00 05/03/17 08:00 05/03/17 08:00 Intake and Output: 05/03/17 05/03/17 06:59 18:59 Intake Total 1200 Output Total 3000 Balance -1800 - Medications Medications: Current Medications Acetaminophen (Tylenol 325mg Tab) 650 mg PO QID PRN PRN Reason: Pain, Mild (1-3) Last Admin: 05/02/17 15:32 Dose: 650 mg Albuterol Sulfate (Albuterol 0.083% Inhal Rosalina (2.5 Mg/3 Ml) Ud) 2.5 mg IH RTID [facility] Last Admin: 04/30/17 16:39 Dose: 2.5 mg Famotidine (Pepcid) 20 mg PO HS [facility] Last Admin: 05/02/17 22:03 Dose: 20 mg Folic Acid (Folic Acid) 1 mg PO DAILY [facility] Last Admin: 05/02/17 09:12 Dose: 1 mg Furosemide (Lasix) 20 mg PO BID [facility] Last Admin: 05/02/17 17:26 Dose: 20 mg Guaifenesin/Dextromethorphan (Robitussin Dm) 10 ml PO QID PRN PRN Reason: Cough Last Admin: 05/02/17 22:03 Dose: 10 ml Sodium Chloride (Sodium Chloride 0.9%) 1,000 mls @ 100 mls/hr IV .Q10H [facility] Last Admin: 05/02/17 20:00 Dose: 100 mls/hr Metoprolol Succinate (Toprol Xl) 50 mg PO Q12 [facility] Last Admin: 05/02/17 22:06 Dose: 50 mg Oxycodone/Acetaminophen (Percocet 5/325 Mg Tab) 1 tab PO Q6H PRN PRN Reason: pain Stop: 05/03/17 14:07 Last Admin: 05/03/17 00:58 Dose: 1 tab Zolpidem Tartrate (Ambien) 5 mg PO HS PRN PRN Reason: Insomnia Last Admin: 05/02/17 22:03 Dose: 5 mg - Labs Labs: 05/03/17 07:27 05/03/17 07:27 PT 13.0 SECONDS (9.7-12.2) H 04/29/17 23:35 INR 1.2 04/29/17 23:35 APTT 31 SECONDS (21-34) 04/29/17 23:35 - Constitutional Appears: Non-toxic, No Acute Distress, Cachectic - Head Exam Head Exam: ATRAUMATIC, NORMAL INSPECTION - Eye Exam Eye Exam: EOMI, Normal appearance - ENT Exam ENT Exam: Mucous Membranes Moist - Neck Exam Neck Exam: Full ROM - Respiratory Exam Respiratory Exam: NORMAL BREATHING PATTERN - Cardiovascular Exam Cardiovascular Exam: +S1, +S2 - GI/Abdominal Exam GI & Abdominal Exam: Soft, Normal Bowel Sounds - Extremities Exam Extremities Exam: Full ROM - Back Exam Back Exam: Full ROM - Neurological Exam Neurological Exam: Alert, Awake, Oriented x3 - Psychiatric Exam Psychiatric exam: Normal Affect, Normal Mood - Skin Skin Exam: Dry, Normal Color, Warm Assessment and Plan (1) Hydroureter on left Assessment & Plan: Urology on the case- Will follow up on recommendations Cystoscopy this evening. F/U results Status: Acute (2) Cystitis Assessment & Plan: UA positive UC showed yeast species Afebrile, No leukocytosis- Cont to monitor Will continue antibiotics at this time in light of CT findings noted above F/U Urology recommendations as well Status: Acute (3) Prophylactic measure Assessment & Plan: DVT Prophylaxis: GI Prophylaxis Pepcid 20 mg PO HS Status: Acute - Assessment and Plan (Free Text) Assessment: Discussed with the attending. All management and planning per Dr. Reid.
[2017-05-03] MEDS ORDERED: Hydrocortisone 1% Cream (30 GM) TOP SCH (10:00)
[2017-05-03] MEDS: Hydrocortisone 1% Cream (30 GM) TOP SCH ×2 (10:46→17:55)
[2017-05-03] MEDS: guaiFENesin DM 200 mg-20 mg/10 ml UD PO PRN ×2 (10:46→22:06)
[2017-05-03] MEDS: Metoprolol Succinate 50 mg XL Tab PO SCH ×2 (11:00→22:06)
[2017-05-03] MEDS: Sodium Chloride 0.9% 1,000 ML IV SCH ×2 (13:22→23:54)
[2017-05-03] MEDS ORDERED: Oxycodone/Acetaminophen 5/325 mg Tab PO PRN (15:37)
--- NOTE | 2017-05-03 18:41 | CP.PCM.PN ---
Subjective - Date & Time of Evaluation Date of Evaluation: 05/03/17 Time of Evaluation: 18:41 Objective - Vital Signs/Intake and Output Vital Signs (last 24 hours): Temp Pulse Resp BP Pulse Ox 98.0 F 80 20 118/80 99 05/03/17 16:00 05/03/17 16:00 05/03/17 16:00 05/03/17 18:07 05/03/17 16:00 Intake and Output: 05/03/17 05/03/17 06:59 18:59 Intake Total 1200 820 Output Total 3000 1000 Balance -1800 -180 - Medications Medications: Current Medications Acetaminophen (Tylenol 325mg Tab) 650 mg PO QID PRN PRN Reason: Pain, Mild (1-3) Last Admin: 05/02/17 15:32 Dose: 650 mg Albuterol Sulfate (Albuterol 0.083% Inhal Rosalina (2.5 Mg/3 Ml) Ud) 2.5 mg IH RTID [facility] Last Admin: 04/30/17 16:39 Dose: 2.5 mg Famotidine (Pepcid) 20 mg PO HS [facility] Last Admin: 05/02/17 22:03 Dose: 20 mg Folic Acid (Folic Acid) 1 mg PO DAILY [facility] Last Admin: 05/03/17 10:46 Dose: 1 mg Furosemide (Lasix) 20 mg PO BID [facility] Last Admin: 05/03/17 18:07 Dose: 20 mg Guaifenesin/Dextromethorphan (Robitussin Dm) 10 ml PO QID PRN PRN Reason: Cough Last Admin: 05/03/17 10:46 Dose: 10 ml Hydrocortisone (Cortizone 1% Cream) 0 gm TOP BID [facility] Last Admin: 05/03/17 17:55 Dose: 1 applic Sodium Chloride (Sodium Chloride 0.9%) 1,000 mls @ 100 mls/hr IV .Q10H [facility] Last Admin: 05/03/17 13:22 Dose: 100 mls/hr Metoprolol Succinate (Toprol Xl) 50 mg PO Q12 [facility] Last Admin: 05/03/17 11:00 Dose: 50 mg Oxycodone/Acetaminophen (Percocet 5/325 Mg Tab) 1 tab PO Q6H PRN PRN Reason: Pain, severe (8-10) Stop: 05/06/17 15:38 Zolpidem Tartrate (Ambien) 5 mg PO HS PRN PRN Reason: Insomnia Last Admin: 05/02/17 22:03 Dose: 5 mg - Labs Labs: 05/03/17 07:27 05/03/17 07:27 PT 13.0 SECONDS (9.7-12.2) H 04/29/17 23:35 INR 1.2 04/29/17 23:35 APTT 31 SECONDS (21-34) 04/29/17 23:35
--- NOTE | 2017-05-03 19:44 | CP.PCM.PN ---
Subjective - Date & Time of Evaluation Date of Evaluation: 05/03/17 Time of Evaluation: 07:20 - Subjective Subjective: clinically same Objective - Vital Signs/Intake and Output Vital Signs (last 24 hours): Temp Pulse Resp BP Pulse Ox 98.0 F 80 20 118/80 99 05/03/17 16:00 05/03/17 16:00 05/03/17 16:00 05/03/17 18:07 05/03/17 16:00 Intake and Output: 05/03/17 05/04/17 18:59 06:59 Intake Total 820 Output Total 1000 Balance -180 - Medications Medications: Current Medications Acetaminophen (Tylenol 325mg Tab) 650 mg PO QID PRN PRN Reason: Pain, Mild (1-3) Last Admin: 05/02/17 15:32 Dose: 650 mg Albuterol Sulfate (Albuterol 0.083% Inhal Rosalina (2.5 Mg/3 Ml) Ud) 2.5 mg IH RTID [facility] Last Admin: 04/30/17 16:39 Dose: 2.5 mg Famotidine (Pepcid) 20 mg PO HS [facility] Last Admin: 05/02/17 22:03 Dose: 20 mg Folic Acid (Folic Acid) 1 mg PO DAILY [facility] Last Admin: 05/03/17 10:46 Dose: 1 mg Furosemide (Lasix) 20 mg PO BID [facility] Last Admin: 05/03/17 18:07 Dose: 20 mg Guaifenesin/Dextromethorphan (Robitussin Dm) 10 ml PO QID PRN PRN Reason: Cough Last Admin: 05/03/17 10:46 Dose: 10 ml Hydrocortisone (Cortizone 1% Cream) 0 gm TOP BID [facility] Last Admin: 05/03/17 17:55 Dose: 1 applic Sodium Chloride (Sodium Chloride 0.9%) 1,000 mls @ 100 mls/hr IV .Q10H [facility] Last Admin: 05/03/17 13:22 Dose: 100 mls/hr Metoprolol Succinate (Toprol Xl) 50 mg PO Q12 [facility] Last Admin: 05/03/17 11:00 Dose: 50 mg Oxycodone/Acetaminophen (Percocet 5/325 Mg Tab) 1 tab PO Q6H PRN PRN Reason: Pain, severe (8-10) Stop: 05/06/17 15:38 Zolpidem Tartrate (Ambien) 5 mg PO HS PRN PRN Reason: Insomnia Last Admin: 05/02/17 22:03 Dose: 5 mg - Labs Labs: 05/03/17 07:27 05/03/17 07:27 PT 13.0 SECONDS (9.7-12.2) H 04/29/17 23:35 INR 1.2 04/29/17 23:35 APTT 31 SECONDS (21-34) 04/29/17 23:35 - Constitutional Appears: Well - Head Exam Head Exam: ATRAUMATIC, NORMAL INSPECTION, NORMOCEPHALIC - Eye Exam Eye Exam: EOMI, Normal appearance, PERRL Pupil Exam: NORMAL ACCOMODATION, PERRL - ENT Exam ENT Exam: Mucous Membranes Moist, Normal Exam - Neck Exam Neck Exam: Full ROM, Normal Inspection. absent: Lymphadenopathy - Respiratory Exam Respiratory Exam: Decreased Breath Sounds - Cardiovascular Exam Cardiovascular Exam: REGULAR RHYTHM, +S1, +S2 - GI/Abdominal Exam GI & Abdominal Exam: Soft, Diminished Bowel Sounds - Rectal Exam Rectal Exam: Deferred
[2017-05-04] MEDS: Sodium Chloride 0.9% 1,000 ML IV SCH ×5 (06:03→21:59)
[2017-05-04 08:19] LABS: BASO % 0.4 % (0.0-2.0); EOS # 0.3 K/uL (0.0-0.7); EOS % 2.8 % (0.0-4.0); HEMOGLOBIN 10.8 g/dL (12.0-18.0); LYMPH # 3.2 K/uL (1.0-4.3); LYMPH % 30.1 % (20.0-40.0); MEAN CELL VOLUME 81.4 fL (80.0-94.0); MEAN CORPUSCULAR HEMOGLOBIN 26.9 pg (27.0-31.0); MEAN PLATELET VOLUME 7.5 fL (7.2-11.7); MONO # 0.6 K/uL (0.0-0.8); MONO % 5.5 % (0.0-10.0); NEUT # 6.5 K/uL (1.8-7.0); NEUT % 61.2 % (50.0-75.0); RBC 4.03 Mil/uL (4.40-5.90); RED CELL DISTRIBUTION WIDTH 18.1 % (11.5-14.5); WHITE BLOOD COUNT 10.7 K/uL (4.8-10.8)
[2017-05-04 08:43] LABS: ALB/GLOB RATIO 0.8 (1.0-2.1); ALBUMIN 3.3 g/dL (3.5-5.0); ALT/SGPT 17 U/L (21-72); AST/SGOT 19 U/L (17-59); BLOOD UREA NITROGEN 21 mg/dL (9-20); CALCIUM 10.3 mg/dl (8.6-10.4); GFR AFRICAN-AMERICAN > 60; GFR NON-AFRICAN AMERICAN > 60; MAGNESIUM 1.8 mg/dL (1.6-2.3)
[2017-05-04] MEDS: guaiFENesin DM 200 mg-20 mg/10 ml UD PO PRN ×2 (09:05→21:51)
[2017-05-04] MEDS: Metoprolol Succinate 50 mg XL Tab PO SCH ×2 (09:05→21:53)
[2017-05-04] MEDS: Hydrocortisone 1% Cream (30 GM) TOP SCH ×2 (09:08→18:00)
[2017-05-04] MEDS ORDERED: Lactated Ringer's 1,000 ML IV ONE (16:25)
[2017-05-04] MEDS ORDERED: cefTRIAXone IV 1 gm in Dextros 50 ML IVPB ONE (16:32)
[2017-05-04] MEDS ORDERED: Lidocaine 2% Jelly (Uro-Jet) ONE (16:33)
[2017-05-04] MEDS ORDERED: Iohexol 240 (50 ml) ONE (16:37)
[2017-05-04] MEDS: Lactated Ringer's 1,000 ML IV ONE (16:41)
[2017-05-04] MEDS ORDERED: Lactated Ringer's 500 ML IV ONE (16:41)
[2017-05-04] MEDS ORDERED: Midazolam 2 MG/2 ML VIAL ONE (16:44)
[2017-05-04] MEDS ORDERED: Propofol 10 mg/ml Inj (20 ML) ONE (16:44)
--- NOTE | 2017-05-04 16:52 | CP.PCM.PN ---
Subjective - Date & Time of Evaluation Date of Evaluation: 05/04/17 Time of Evaluation: 07:40 - Subjective Subjective: clinically sme Objective - Vital Signs/Intake and Output Vital Signs (last 24 hours): Temp Pulse Resp BP Pulse Ox 98.3 F 80 20 115/77 99 05/04/17 16:46 05/04/17 16:46 05/04/17 16:46 05/04/17 16:46 05/04/17 16:46 Intake and Output: 05/04/17 05/04/17 06:59 18:59 Intake Total 2060 Output Total 1450 600 Balance 610 -600 - Medications Medications: Current Medications Acetaminophen (Tylenol 325mg Tab) 650 mg PO QID PRN PRN Reason: Pain, Mild (1-3) Last Admin: 05/02/17 15:32 Dose: 650 mg Albuterol Sulfate (Albuterol 0.083% Inhal Rosalina (2.5 Mg/3 Ml) Ud) 2.5 mg IH RTID [facility] Last Admin: 04/30/17 16:39 Dose: 2.5 mg Famotidine (Pepcid) 20 mg PO HS [facility] Last Admin: 05/03/17 23:00 Dose: 20 mg Fluconazole (Diflucan) 100 mg PO DAILY [facility] Last Admin: 05/04/17 10:29 Dose: 100 mg Folic Acid (Folic Acid) 1 mg PO DAILY [facility] Last Admin: 05/04/17 09:06 Dose: 1 mg Furosemide (Lasix) 20 mg PO BID [facility] Last Admin: 05/04/17 09:05 Dose: 20 mg Guaifenesin/Dextromethorphan (Robitussin Dm) 10 ml PO QID PRN PRN Reason: Cough Last Admin: 05/04/17 09:05 Dose: 10 ml Hydrocortisone (Cortizone 1% Cream) 0 gm TOP BID [facility] Last Admin: 05/04/17 09:08 Dose: 1 applic Sodium Chloride (Sodium Chloride 0.9%) 1,000 mls @ 100 mls/hr IV .Q10H [facility] Last Admin: 05/04/17 11:18 Dose: Not Given Ceftriaxone Sodium 1 gm/ (Sodium Chloride) 100 mls @ 200 mls/hr IVPB ONCE ONE Stop: 05/04/17 17:29 Metoprolol Succinate (Toprol Xl) 50 mg PO Q12 [facility] Last Admin: 05/04/17 09:05 Dose: 50 mg Oxycodone/Acetaminophen (Percocet 5/325 Mg Tab) 1 tab PO Q6H PRN PRN Reason: Pain, severe (8-10) Stop: 05/06/17 15:38 Zolpidem Tartrate (Ambien) 5 mg PO HS PRN PRN Reason: Insomnia Last Admin: 05/03/17 22:06 Dose: 5 mg - Labs Labs: 05/04/17 08:13 05/04/17 08:13 PT 13.0 SECONDS (9.7-12.2) H 04/29/17 23:35 INR 1.2 04/29/17 23:35 APTT 31 SECONDS (21-34) 04/29/17 23:35 - Constitutional Appears: Well - Head Exam Head Exam: ATRAUMATIC, NORMAL INSPECTION, NORMOCEPHALIC - Eye Exam Eye Exam: EOMI, Normal appearance, PERRL Pupil Exam: NORMAL ACCOMODATION, PERRL - ENT Exam ENT Exam: Mucous Membranes Moist, Normal Exam - Neck Exam Neck Exam: Full ROM, Normal Inspection. absent: Lymphadenopathy - Respiratory Exam Respiratory Exam: Decreased Breath Sounds - Cardiovascular Exam Cardiovascular Exam: REGULAR RHYTHM, +S1, +S2 - GI/Abdominal Exam GI & Abdominal Exam: Soft, Diminished Bowel Sounds - Rectal Exam Rectal Exam: Deferred
--- NOTE | 2017-05-04 17:13 | CP.PCM.PN ---
Subjective - Date & Time of Evaluation Date of Evaluation: 05/04/17 Time of Evaluation: 17:11 Objective - Vital Signs/Intake and Output Vital Signs (last 24 hours): Temp Pulse Resp BP Pulse Ox 98.3 F 80 20 115/77 99 05/04/17 16:46 05/04/17 16:46 05/04/17 16:46 05/04/17 16:46 05/04/17 16:46 Intake and Output: 05/04/17 05/04/17 06:59 18:59 Intake Total 2060 800 Output Total 1450 600 Balance 610 200 - Medications Medications: Current Medications Acetaminophen (Tylenol 325mg Tab) 650 mg PO QID PRN PRN Reason: Pain, Mild (1-3) Last Admin: 05/02/17 15:32 Dose: 650 mg Albuterol Sulfate (Albuterol 0.083% Inhal Rosalina (2.5 Mg/3 Ml) Ud) 2.5 mg IH RTID [facility] Last Admin: 04/30/17 16:39 Dose: 2.5 mg Famotidine (Pepcid) 20 mg PO HS [facility] Last Admin: 05/03/17 23:00 Dose: 20 mg Fluconazole (Diflucan) 100 mg PO DAILY [facility] Last Admin: 05/04/17 10:29 Dose: 100 mg Folic Acid (Folic Acid) 1 mg PO DAILY [facility] Last Admin: 05/04/17 09:06 Dose: 1 mg Furosemide (Lasix) 20 mg PO BID [facility] Last Admin: 05/04/17 09:05 Dose: 20 mg Guaifenesin/Dextromethorphan (Robitussin Dm) 10 ml PO QID PRN PRN Reason: Cough Last Admin: 05/04/17 09:05 Dose: 10 ml Hydrocortisone (Cortizone 1% Cream) 0 gm TOP BID [facility] Last Admin: 05/04/17 09:08 Dose: 1 applic Sodium Chloride (Sodium Chloride 0.9%) 1,000 mls @ 100 mls/hr IV .Q10H [facility] Last Admin: 05/04/17 11:18 Dose: Not Given Ceftriaxone Sodium 1 gm/ (Sodium Chloride) 100 mls @ 200 mls/hr IVPB ONCE ONE Stop: 05/04/17 17:29 Last Admin: 05/04/17 16:50 Dose: 100 mls Metoprolol Succinate (Toprol Xl) 50 mg PO Q12 [facility] Last Admin: 05/04/17 09:05 Dose: 50 mg Oxycodone/Acetaminophen (Percocet 5/325 Mg Tab) 1 tab PO Q6H PRN PRN Reason: Pain, severe (8-10) Stop: 05/06/17 15:38 Zolpidem Tartrate (Ambien) 5 mg PO HS PRN PRN Reason: Insomnia Last Admin: 05/03/17 22:06 Dose: 5 mg - Labs Labs: 05/04/17 08:13 05/04/17 08:13 PT 13.0 SECONDS (9.7-12.2) H 04/29/17 23:35 INR 1.2 04/29/17 23:35 APTT 31 SECONDS (21-34) 04/29/17 23:35
[2017-05-04] MEDS ORDERED: Sodium Chloride 0.9% 1,000 ML IV ONE (18:00)
--- NOTE | 2017-05-04 21:12 | CP.PCM.PN ---
Subjective - Date & Time of Evaluation Date of Evaluation: 05/04/17 Time of Evaluation: 06:25 - Subjective Subjective: Medicine Progress Note- Dr. Reid's service Patient seen and examined in no apparent distress. Patient for cystoscopy today. It was to be performed; however Urologist rescheduled for today. Patient a bit frustrated about the delay, but awaiting the procedure. No otherwise complaints of continued hematuria, or abdominal pain, headaches, nausea, vomiting, fevers or chills at this time. Objective - Vital Signs/Intake and Output Vital Signs (last 24 hours): Temp Pulse Resp BP Pulse Ox 98.2 F 85 16 96/59 L 100 05/04/17 18:00 05/04/17 18:00 05/04/17 18:00 05/04/17 18:00 05/04/17 18:00 Intake and Output: 05/04/17 05/05/17 18:59 06:59 Intake Total 800 Output Total 600 Balance 200 - Medications Medications: Current Medications Acetaminophen (Tylenol 325mg Tab) 650 mg PO QID PRN PRN Reason: Pain, Mild (1-3) Last Admin: 05/02/17 15:32 Dose: 650 mg Albuterol Sulfate (Albuterol 0.083% Inhal Rosalina (2.5 Mg/3 Ml) Ud) 2.5 mg IH RTID [facility] Last Admin: 04/30/17 16:39 Dose: 2.5 mg Famotidine (Pepcid) 20 mg PO HS [facility] Last Admin: 05/03/17 23:00 Dose: 20 mg Fluconazole (Diflucan) 100 mg PO DAILY [facility] Last Admin: 05/04/17 10:29 Dose: 100 mg Folic Acid (Folic Acid) 1 mg PO DAILY [facility] Last Admin: 05/04/17 09:06 Dose: 1 mg Furosemide (Lasix) 20 mg PO BID [facility] Last Admin: 05/04/17 18:00 Dose: Not Given Guaifenesin/Dextromethorphan (Robitussin Dm) 10 ml PO QID PRN PRN Reason: Cough Last Admin: 05/04/17 09:05 Dose: 10 ml Hydrocortisone (Cortizone 1% Cream) 0 gm TOP BID [facility] Last Admin: 05/04/17 18:00 Dose: Not Given Sodium Chloride (Sodium Chloride 0.9%) 1,000 mls @ 100 mls/hr IV .Q10H [facility] Last Admin: 05/04/17 11:18 Dose: Not Given Metoprolol Succinate (Toprol Xl) 50 mg PO Q12 [facility] Last Admin: 05/04/17 09:05 Dose: 50 mg Oxycodone/Acetaminophen (Percocet 5/325 Mg Tab) 1 tab PO Q6H PRN PRN Reason: Pain, severe (8-10) Stop: 05/06/17 15:38 Zolpidem Tartrate (Ambien) 5 mg PO HS PRN PRN Reason: Insomnia Last Admin: 05/03/17 22:06 Dose: 5 mg - Labs Labs: 05/04/17 08:13 05/04/17 08:13 PT 13.0 SECONDS (9.7-12.2) H 04/29/17 23:35 INR 1.2 04/29/17 23:35 APTT 31 SECONDS (21-34) 04/29/17 23:35 - Constitutional Appears: Non-toxic, No Acute Distress, Cachectic - Head Exam Head Exam: ATRAUMATIC, NORMAL INSPECTION - Eye Exam Eye Exam: EOMI, Normal appearance, PERRL Pupil Exam: NORMAL ACCOMODATION - ENT Exam ENT Exam: Mucous Membranes Moist - Neck Exam Neck Exam: Full ROM - Cardiovascular Exam Cardiovascular Exam: +S1, +S2 - GI/Abdominal Exam GI & Abdominal Exam: Soft, Normal Bowel Sounds - Exam Additional comments: [place] in place, urine is clear yellow - Extremities Exam Extremities Exam: Full ROM - Back Exam Back Exam: Full ROM - Neurological Exam Neurological Exam: Alert, Awake, Oriented x3 - Psychiatric Exam Psychiatric exam: Normal Affect, Normal Mood - Skin Skin Exam: Dry, Normal Color, Warm Assessment and Plan (1) Hydroureter on left Status: Acute (2) Cystitis Status: Acute (3) Prophylactic measure Status: Acute - Assessment and Plan (Free Text) Assessment: Assessment and Plan Hydroureter on left Assessment & Plan: Urology on the case- Will follow up on recommendations Cystoscopy today. F/U urology recommendations Pain control as needed F/U results Status: Acute Cystitis Assessment & Plan: UA positive UC showed yeast species Afebrile, No leukocytosis- Cont to monitor Will continue antibiotics at this time in light of CT findings noted above F/U Urology recommendations as well Status: Acute Trach Collar Assessment & Plan: This will have to be removed Consult to [employer]- Dr. Tipton Will assess once hematuria workup is complete. Status: Chronic Prophylactic measure Assessment & Plan: DVT Prophylaxis: GI Prophylaxis Pepcid 20 mg PO HS Status: Acute Discussed with the attending. All management and planning per Dr. Reid.
[2017-05-04 23:54] VITALS: RESP 20
--- NOTE | 2017-05-05 06:40 | CARD ---
APPROVED REPORT EKG Measurement Heart [id number] <Conclusion> Normal sinus rhythm Possible Left atrial enlargement Nonspecific ST and T wave abnormality Prolonged QT Abnormal ECG
[2017-05-05] MEDS: Sodium Chloride 0.9% 1,000 ML IV SCH ×2 (08:35→18:00)
[2017-05-05 08:46] LABS: BASO % 0.5 % (0.0-2.0); EOS # 0.2 K/uL (0.0-0.7); EOS % 2.4 % (0.0-4.0); HEMOGLOBIN 10.6 g/dL (12.0-18.0); MEAN CELL VOLUME 81.5 fL (80.0-94.0); MEAN CORPUSCULAR HEMOGLOBIN 27.4 pg (27.0-31.0); MEAN CORPUSCULAR HGB CONC 33.6 g/dL (33.0-37.0); MEAN PLATELET VOLUME 7.9 fL (7.2-11.7); MONO # 0.5 K/uL (0.0-0.8); NEUT % 57.1 % (50.0-75.0); RBC 3.89 Mil/uL (4.40-5.90); RED CELL DISTRIBUTION WIDTH 17.8 % (11.5-14.5); WHITE BLOOD COUNT 8.7 K/uL (4.8-10.8)
[2017-05-05 09:14] LABS: ALB/GLOB RATIO 0.8 (1.0-2.1); ALBUMIN 3.1 g/dL (3.5-5.0); ALT/SGPT 11 U/L (21-72); AST/SGOT 21 U/L (17-59); BLOOD UREA NITROGEN 19 mg/dL (9-20); CALCIUM 10.2 mg/dl (8.6-10.4); GFR AFRICAN-AMERICAN > 60; GFR NON-AFRICAN AMERICAN > 60; MAGNESIUM 1.7 mg/dL (1.6-2.3)
[2017-05-05] MEDS: Hydrocortisone 1% Cream (30 GM) TOP SCH ×2 (09:51→17:48)
[2017-05-05] MEDS: Metoprolol Succinate 50 mg XL Tab PO SCH ×2 (10:00→22:10)
--- NOTE | 2017-05-05 10:44 | RAD ---
PROCEDURE: Abdomen (flatplate) HISTORY: HEMATURIA COMPARISON: Not available TECHNIQUE: Two films are submitted from a retrograde pyelogram performed by Dr. Nick Meade FINDINGS: Eight film labeled custom harvester is submitted. This demonstrates an unremarkable bowel gas pattern. No abnormal intra-abdominal calcifications are appreciated. There is no significant retained fecal matter. No hepatic or splenic enlargement is seen. A 2nd film is submitted demonstrating right retrograde pyelo ureteral atrophy. Small filling defects are identified within the ureter consistent with air bubbles. Normal sharp forniceal angles are seen in the renal collecting system. . IMPRESSION: No gross abnormality identified. Please see full procedure report from Dr. Nick Meade.
--- NOTE | 2017-05-05 11:38 | CP.PCM.PN ---
Subjective - Date & Time of Evaluation Date of Evaluation: 05/05/17 Time of Evaluation: 11:36 - Subjective Subjective: PGY [address] Reid Pt seen and examined at bedside. No acute events overnight. Pt underwent cystoscopy yesterday with Dr. Meade. Tolerated procedure well. D/Tam [place] catheter yesterday. Currently pt able to urinate without difficulty. Denies having any abd pain, N/V/D/C, CP, SOB, F/C. Trach collar still in place. Objective - Vital Signs/Intake and Output Vital Signs (last 24 hours): Temp Pulse Resp BP Pulse Ox 97.7 F 81 20 156/96 H 97 05/05/17 07:00 05/05/17 07:00 05/05/17 07:00 05/05/17 09:59 05/05/17 07:00 Intake and Output: 05/05/17 05/05/17 06:59 18:59 Intake Total 600 980 Output Total 1150 800 Balance -550 180 - Medications Medications: Current Medications Acetaminophen (Tylenol 325mg Tab) 650 mg PO QID PRN PRN Reason: Pain, Mild (1-3) Last Admin: 05/02/17 15:32 Dose: 650 mg Famotidine (Pepcid) 20 mg PO HS [facility] Last Admin: 05/04/17 21:51 Dose: 20 mg Fluconazole (Diflucan) 100 mg PO DAILY [facility] Last Admin: 05/05/17 10:01 Dose: 100 mg Folic Acid (Folic Acid) 1 mg PO DAILY [facility] Last Admin: 05/05/17 10:00 Dose: 1 mg Furosemide (Lasix) 20 mg PO BID [facility] Last Admin: 05/05/17 09:59 Dose: 20 mg Guaifenesin/Dextromethorphan (Robitussin Dm) 10 ml PO QID PRN PRN Reason: Cough Last Admin: 05/04/17 21:51 Dose: 10 ml Hydrocortisone (Cortizone 1% Cream) 0 gm TOP BID [facility] Last Admin: 05/05/17 09:51 Dose: 1 applic Sodium Chloride (Sodium Chloride 0.9%) 1,000 mls @ 100 mls/hr IV .Q10H [facility] Last Admin: 05/05/17 08:35 Dose: 100 mls/hr Metoprolol Succinate (Toprol Xl) 50 mg PO Q12 [facility] Last Admin: 05/04/17 21:53 Dose: 50 mg Oxycodone/Acetaminophen (Percocet 5/325 Mg Tab) 1 tab PO Q6H PRN PRN Reason: Pain, severe (8-10) Stop: 05/06/17 15:38 Zolpidem Tartrate (Ambien) 5 mg PO HS PRN PRN Reason: Insomnia Last Admin: 05/04/17 21:51 Dose: 5 mg - Labs Labs: 05/05/17 08:33 05/05/17 08:33 PT 13.0 SECONDS (9.7-12.2) H 04/29/17 23:35 INR 1.2 04/29/17 23:35 APTT 31 SECONDS (21-34) 04/29/17 23:35 - Constitutional Appears: Non-toxic, No Acute Distress - Head Exam Head Exam: ATRAUMATIC - ENT Exam ENT Exam: Mucous Membranes Moist - Respiratory Exam Respiratory Exam: Clear to Ausculation Bilateral. absent: Accessory Muscle Use , Rhonchi, Wheezes, Respiratory Distress - Cardiovascular Exam Cardiovascular Exam: REGULAR RHYTHM, +S1, +S2. absent: Gallop, Rubs, Murmur - GI/Abdominal Exam GI & Abdominal Exam: Soft, Normal Bowel Sounds. absent: Distended, Firm, Guarding, Rigid, Tenderness, Organomegaly - Extremities Exam Extremities Exam: absent: Pedal Edema, Tenderness - Neurological Exam Neurological Exam: Alert, Awake, Oriented x3 - Psychiatric Exam Psychiatric exam: Normal Affect, Normal Mood - Skin Skin Exam: Dry, Intact, Normal Color, Warm Assessment and Plan - Assessment and Plan (Free Text) Assessment: Hydroureter on left Pt underwent cystoscopy with urology yesterday. Will await further recs Cystitis UA positive UC showed yeast species Afebrile, No leukocytosis- Cont to monitor Will continue antibiotics at this time in light of CT findings noted above F/U Urology recommendations as well Trach Collar Trach collared removed by jewel diameter gauger today. Will observe for next 24 hrs. Consult to President Sales And Marketing- Dr. Tipton Hypercalcemia Consulted endo, Dr. Franks Currently calcium level stable Prophylactic measure GI Prophylaxis Pepcid 20 mg PO HS Discussed with the attending. All management and planning per Dr. Reid.
--- NOTE | 2017-05-05 12:21 | PN ---
DATE: HEMATOLOGY AND ONCOLOGY FOLLOWUP REASON FOR FOLLOWUP: Hematuria and hypercalcemia. SUBJECTIVE: Patient denies any complaints, feels better. Hematuria resolved. Hypercalcemia resolved. Status post cystoscopy yesterday. Evidence of acute cystitis. OBJECTIVE VITAL SIGNS: Temperature of 98.2, blood pressure is 100/60, pulse 80, respirations 16. HEENT: PERRLA. No scleral icterus is seen. NECK: Supple. CHEST: Bilateral air entry is decreased with scattered rales and rhonchi. LABORATORY DATA: Show a white count of 8.7, hemoglobin of 10.6, hematocrit of 32, platelets of 283,000. BUN of 19, creatinine of 0.9. ASSESSMENT AND PLAN: A 66-year-old male with hematuria and hypercalcemia, both of which have resolved at this time. We will await Urology input, most likely acute cystitis. We will continue to monitor, globulin level is 4.1 at this time, slightly elevated, but will await acute infection to resolve for further recommendations. Patient can be followed up as outpatient for further intervention. No further hematological or oncologic intervention at this time. We will follow up in 1 month and monitor globulin level; if still elevated, we will undertake further workup and intervention. Case was discussed with the patient. Please re-call as needed Clarice Franks MD
--- NOTE | 2017-05-05 13:06 | RAD ---
PROCEDURE: Intraoperative fluoroscopy HISTORY: HEMATURIA COMPARISON: Not available TECHNIQUE: Intraoperative fluoroscopy was provided for retrograde pyelo ureteral atrophy. Total time of fluoroscopy was 3.1 seconds. FINDINGS: Three fluoroscopic spot films are submitted. IMPRESSION: Fluoroscopy provided.
--- NOTE | 2017-05-05 15:46 | CP.PCM.PN ---
Subjective - Date & Time of Evaluation Date of Evaluation: 05/05/17 Time of Evaluation: 15:46 Objective - Vital Signs/Intake and Output Vital Signs (last 24 hours): Temp Pulse Resp BP Pulse Ox 97.7 F 81 20 156/96 H 97 05/05/17 07:00 05/05/17 07:00 05/05/17 07:00 05/05/17 09:59 05/05/17 07:00 Intake and Output: 05/05/17 05/05/17 06:59 18:59 Intake Total 600 980 Output Total 1150 800 Balance -550 180 - Medications Medications: Current Medications Acetaminophen (Tylenol 325mg Tab) 650 mg PO QID PRN PRN Reason: Pain, Mild (1-3) Last Admin: 05/02/17 15:32 Dose: 650 mg Famotidine (Pepcid) 20 mg PO HS [facility] Last Admin: 05/04/17 21:51 Dose: 20 mg Fluconazole (Diflucan) 100 mg PO DAILY [facility] Last Admin: 05/05/17 10:01 Dose: 100 mg Folic Acid (Folic Acid) 1 mg PO DAILY [facility] Last Admin: 05/05/17 10:00 Dose: 1 mg Furosemide (Lasix) 20 mg PO BID [facility] Last Admin: 05/05/17 09:59 Dose: 20 mg Guaifenesin/Dextromethorphan (Robitussin Dm) 10 ml PO QID PRN PRN Reason: Cough Last Admin: 05/04/17 21:51 Dose: 10 ml Hydrocortisone (Cortizone 1% Cream) 0 gm TOP BID [facility] [place] Last Admin: 05/05/17 09:51 Dose: 1 applic Sodium Chloride (Sodium Chloride 0.9%) 1,000 mls @ 100 mls/hr IV .Q10H [facility] Last Admin: 05/05/17 08:35 Dose: 100 mls/hr Metoprolol Succinate (Toprol Xl) 50 mg PO Q12 [facility] Last Admin: 05/05/17 10:00 Dose: 50 mg Oxycodone/Acetaminophen (Percocet 5/325 Mg Tab) 1 tab PO Q6H PRN PRN Reason: Pain, severe (8-10) Stop: 05/06/17 15:38 Zolpidem Tartrate (Ambien) 5 mg PO HS PRN PRN Reason: Insomnia Last Admin: 05/04/17 21:51 Dose: 5 mg - Labs Labs: 05/05/17 08:33 05/05/17 08:33 PT 13.0 SECONDS (9.7-12.2) H 04/29/17 23:35 INR 1.2 04/29/17 23:35 APTT 31 SECONDS (21-34) 04/29/17 23:35
--- NOTE | 2017-05-05 18:15 | CP.PCM.PN ---
Subjective - Date & Time of Evaluation Date of Evaluation: 05/05/17 Time of Evaluation: 07:40 - Subjective Subjective: clinically same Objective - Vital Signs/Intake and Output Vital Signs (last 24 hours): Temp Pulse Resp BP Pulse Ox 98.7 F 95 H 20 168/91 H 99 05/05/17 16:29 05/05/17 16:29 05/05/17 16:29 05/05/17 16:29 05/05/17 16:29 Intake and Output: 05/05/17 05/05/17 06:59 18:59 Intake Total 600 980 Output Total 1150 800 Balance -550 180 - Medications Medications: Current Medications Acetaminophen (Tylenol 325mg Tab) 650 mg PO QID PRN PRN Reason: Pain, Mild (1-3) Last Admin: 05/02/17 15:32 Dose: 650 mg Famotidine (Pepcid) 20 mg PO HS [facility]PLAC[facility] Last Admin: 05/04/17 21:51 Dose: 20 mg Fluconazole (Diflucan) 100 mg PO DAILY [facility] Last Admin: 05/05/17 10:01 Dose: 100 mg Folic Acid (Folic Acid) 1 mg PO DAILY [facility] Last Admin: 05/05/17 10:00 Dose: 1 mg Furosemide (Lasix) 20 mg PO BID [facility] Last Admin: 05/05/17 17:48 Dose: Not Given Guaifenesin/Dextromethorphan (Robitussin Dm) 10 ml PO QID PRN PRN Reason: Cough Last Admin: 05/04/17 21:51 Dose: 10 ml Hydrocortisone (Cortizone 1% Cream) 0 gm TOP BID [facility] Last Admin: 05/05/17 17:48 Dose: 1 applic Sodium Chloride (Sodium Chloride 0.9%) 1,000 mls @ 100 mls/hr IV .Q10H [facility]PL[facility] Last Admin: 05/05/17 08:35 Dose: 100 mls/hr Metoprolol Succinate (Toprol Xl) 50 mg PO Q12 [facility] Last Admin: 05/05/17 10:00 Dose: 50 mg Oxycodone/Acetaminophen (Percocet 5/325 Mg Tab) 1 tab PO Q6H PRN PRN Reason: Pain, severe (8-10) Stop: 05/06/17 15:38 Zolpidem Tartrate (Ambien) 5 mg PO HS PRN PRN Reason: Insomnia Last Admin: 05/04/17 21:51 Dose: 5 mg - Labs Labs: 05/05/17 08:33 05/05/17 08:33 PT 13.0 SECONDS (9.7-12.2) H 04/29/17 23:35 INR 1.2 04/29/17 23:35 APTT 31 SECONDS (21-34) 04/29/17 23:35 - Constitutional Appears: Well - Head Exam Head Exam: ATRAUMATIC, NORMAL INSPECTION, NORMOCEPHALIC - Eye Exam Eye Exam: EOMI, Normal appearance, PERRL Pupil Exam: NORMAL ACCOMODATION, PERRL - ENT Exam ENT Exam: Mucous Membranes Moist, Normal Exam - Neck Exam Neck Exam: Full ROM, Normal Inspection. absent: Lymphadenopathy - Respiratory Exam Respiratory Exam: Decreased Breath Sounds - Cardiovascular Exam Cardiovascular Exam: REGULAR RHYTHM, +S1, +S2 - GI/Abdominal Exam GI & Abdominal Exam: Soft, Diminished Bowel Sounds - Rectal Exam Rectal Exam: Deferred
[2017-05-06 00:08] VITALS: O2SAT 100
[2017-05-06] MEDS: Sodium Chloride 0.9% 1,000 ML IV SCH (04:15)
[2017-05-06 07:45] LABS: BASO % 0.7 % (0.0-2.0); EOS # 0.2 K/uL (0.0-0.7); EOS % 3.1 % (0.0-4.0); LYMPH # 2.1 K/uL (1.0-4.3); LYMPH % 29.7 % (20.0-40.0); MEAN CELL VOLUME 81.5 fL (80.0-94.0); MEAN CORPUSCULAR HEMOGLOBIN 27.2 pg (27.0-31.0); MEAN CORPUSCULAR HGB CONC 33.4 g/dL (33.0-37.0); MEAN PLATELET VOLUME 7.6 fL (7.2-11.7); MONO # 0.6 K/uL (0.0-0.8); MONO % 7.6 % (0.0-10.0); NEUT # 4.2 K/uL (1.8-7.0); NEUT % 58.9 % (50.0-75.0); RBC 4.03 Mil/uL (4.40-5.90); RED CELL DISTRIBUTION WIDTH 18.2 % (11.5-14.5); WHITE BLOOD COUNT 7.2 K/uL (4.8-10.8)
[2017-05-06 08:22] VITALS: BP 158/87; PULSE 79; TEMP 98.3
[2017-05-06 08:24] LABS: ALB/GLOB RATIO 0.8 (1.0-2.1); ALBUMIN 3.2 g/dL (3.5-5.0); ALT/SGPT 16 U/L (21-72); AST/SGOT 18 U/L (17-59); BLOOD UREA NITROGEN 15 mg/dL (9-20); CALCIUM 10.5 mg/dl (8.6-10.4); GFR AFRICAN-AMERICAN > 60; GFR NON-AFRICAN AMERICAN > 60; MAGNESIUM 1.7 mg/dL (1.6-2.3)
[2017-05-06] MEDS: Metoprolol Succinate 50 mg XL Tab PO SCH (09:41)
[2017-05-06] MEDS: Hydrocortisone 1% Cream (30 GM) TOP SCH (09:41)
[2017-05-06] MEDS ORDERED: Potassium Chloride 20 mEq ER Tab PO ONE (10:00)
[2017-05-06] MEDS ORDERED: Pneumococcal 23-Valent Vaccine IM ONE (13:00)
--- NOTE | 2017-05-06 17:41 | CP.PCM.PN ---
Subjective - Date & Time of Evaluation Date of Evaluation: 05/06/17 Time of Evaluation: 10:00 - Subjective Subjective: Alert, orientedx3, no respiratory distress, NAD. Objective - Vital Signs/Intake and Output Vital Signs (last 24 hours): Temp Pulse Resp BP Pulse Ox 98.3 F 79 20 158/87 H 100 05/06/17 08:18 05/06/17 08:18 05/06/17 08:18 05/06/17 08:18 05/06/17 08:18 Intake and Output: 05/06/17 05/06/17 06:59 18:59 Intake Total 1800 Output Total 1250 Balance 550 - Labs Labs: 05/06/17 07:33 05/06/17 07:33 PT 13.0 SECONDS (9.7-12.2) H 04/29/17 23:35 INR 1.2 04/29/17 23:35 APTT 31 SECONDS (21-34) 04/29/17 23:35 Assessment and Plan - Assessment and Plan (Free Text) Assessment: Patient is seen and examined. Alert and orientedx3, denies any distress, no sob or chest pains. Tracheostomy site clean and intact. no bleading noted. Discussed with DR Heath, plan to discharge to [facility] today under DR Vidya Reid service. Oral antibiotics continued as advised.
--- NOTE | 2017-05-13 00:33 | CP.PCM.DIS ---
Provider - Provider Date of Admission: 04/30/17 02:01 Attending physician: Pedro Reid MD Time Spent in preparation of Discharge (in minutes): 20 Diagnosis - Discharge Diagnosis (1) Chronic respiratory failure Status: Acute Hospital Course - Lab Results Lab Results: Micro Results 04/30/17 02:35 Urine,Random Urine Culture - Final Yeast Species Most Recent Lab Values WBC 7.2 K/uL (4.8-10.8) 05/06/17 07:33 RBC 4.03 Mil/uL (4.40-5.90) L 05/06/17 07:33 Hgb 11.0 g/dL (12.0-18.0) L 05/06/17 07:33 Hct 32.8 % (35.0-51.0) L 05/06/17 07:33 MCV 81.5 fL (80.0-94.0) 05/06/17 07:33 MCH 27.2 pg (27.0-31.0) 05/06/17 07:33 MCHC 33.4 g/dL (33.0-37.0) 05/06/17 07:33 RDW 18.2 % (11.5-14.5) H 05/06/17 07:33 Plt Count 278 K/uL (130-400) 05/06/17 07:33 MPV 7.6 fL (7.2-11.7) 05/06/17 07:33 Neut % (Auto) 58.9 % (50.0-75.0) 05/06/17 07:33 Lymph % (Auto) 29.7 % (20.0-40.0) 05/06/17 07:33 [place] % (Auto) 7.6 % (0.0-10.0) 05/06/17 07:33 Eos % (Auto) 3.1 % (0.0-4.0) 05/06/17 07:33 Baso % (Auto) 0.7 % (0.0-2.0) 05/06/17 07:33 Neut # (Auto) 4.2 K/uL (1.8-7.0) 05/06/17 07:33 Lymph # (Auto) 2.1 K/uL (1.0-4.3) 05/06/17 07:33 [place] # (Auto) 0.6 K/uL (0.0-0.8) 05/06/17 07:33 Eos # (Auto) 0.2 K/uL (0.0-0.7) 05/06/17 07:33 Baso # (Auto) 0.0 K/uL (0.0-0.2) 05/06/17 07:33 PT 13.0 SECONDS (9.7-12.2) H 04/29/17 23:35 INR 1.2 04/29/17 23:35 APTT 31 SECONDS (21-34) 04/29/17 23:35 pO2 41 mm/Hg (30-55) 04/29/17 23:35 VBG pH 7.44 (7.32-7.43) H 04/29/17 23:35 VBG pCO2 44 mmHg (40-60) 04/29/17 23:35 VBG HCO3 28.3 mmol/L 04/29/17 23:35 VBG Total CO2 31.3 mmol/L (22-28) H 04/29/17 23:35 VBG O2 Sat (Calc) 80.6 % (40-65) H 04/29/17 23:35 VBG Base Excess 5.0 mmol/L (0.0-2.0) H 04/29/17 23:35 VBG Potassium 3.7 mmol/L (3.6-5.2) 04/29/17 23:35 Sodium 138.0 mmol/l (132-148) 04/29/17 23:35 Chloride 104.0 mmol/L (98-107) 04/29/17 23:35 Glucose 100 mg/dl (75-110) 04/29/17 23:35 Lactate 1.1 mmol/L (0.7-2.1) 04/29/17 23:35 Sodium 134 mmol/L (132-148) 05/06/17 07:33 Potassium 3.4 mmol/L (3.6-5.2) L 05/06/17 07:33 Chloride 101 mmol/L (98-107) 05/06/17 07:33 Carbon Dioxide 28 mmol/L (22-30) 05/06/17 07:33 Anion Gap 8 (10-20) L 05/06/17 07:33 BUN 15 mg/dL (9-20) 05/06/17 07:33 Creatinine 0.8 mg/dL (0.8-1.5) 05/06/17 07:33 Est GFR ( Amer) > 60 05/06/17 07:33 Est GFR (Non-Af Amer) > 60 05/06/17 07:33 Random Glucose 86 mg/dL (75-110) 05/06/17 07:33 Ionized Calcium 6.8 mg/dL (4.80-5.60) H 04/30/17 07:06 Calcium 10.5 mg/dl (8.6-10.4) H 05/06/17 07:33 Phosphorus 3.3 mg/dL (2.5-4.5) 05/06/17 07:33 Magnesium 1.7 mg/dL (1.6-2.3) 05/06/17 07:33 Total Bilirubin 0.4 mg/dL (0.2-1.3) 05/06/17 07:33 AST 18 U/L (17-59) 05/06/17 07:33 ALT 16 U/L (21-72) L D 05/06/17 07:33 Alkaline Phosphatase 59 U/L (38-126) 05/06/17 07:33 Total Protein 7.1 g/dL (6.3-8.3) 05/06/17 07:33 Albumin 3.2 g/dL (3.5-5.0) L 05/06/17 07:33 Globulin 3.9 gm/dL (2.2-3.9) 05/06/17 07:33 Albumin/Globulin Ratio 0.8 (1.0-2.1) L 05/06/17 07:33 Prostate Specific Ag 1.55 ng/mL (0.00-4.0) 05/01/17 07:44 PTH Intact Whole Molec 32 pg/mL (14-64) 04/30/17 07:06 Venous Blood Potassium 3.7 mmol/L (3.6-5.2) 04/29/17 23:35 Urine Color Red (YELLOW) 04/30/17 01:40 Urine Clarity Hazy (Clear) 04/30/17 01:40 Urine pH 5.0 (5.0-8.0) 04/30/17 01:40 Ur Specific Irons 1.017 (1.003-1.030) 04/30/17 01:40 Urine Protein 2+ mg/dL (NEGATIVE) H 04/30/17 01:40 Urine Glucose (UA) Normal mg/dL (Normal) 04/30/17 01:40 Urine Ketones Negative mg/dL (NEGATIVE) 04/30/17 01:40 Urine Blood 3+ (NEGATIVE) H 04/30/17 01:40 Urine Nitrate Negative (NEGATIVE) 04/30/17 01:40 Urine Bilirubin Negative (NEGATIVE) 04/30/17 01:40 Urine Urobilinogen Normal mg/dL (0.2-1.0) 04/30/17 01:40 Ur Leukocyte Esterase 3+ [place]/uL (Negative) H 04/30/17 01:40 Urine WBC (Auto) 1603 /hpf (0-5) H 04/30/17 01:40 Urine RBC (Auto) 1754 /hpf (0-3) H 04/30/17 01:40 Urine WBC Clumps (Auto) Many /hpf (NONE) H 04/30/17 01:40 Urine Yeast (Budding) Mod /hpf (NEGATIVE) H 04/30/17 01:40 - Hospital Course Hospital Course: 66-year-old male with prior history of acute respiratory failure status post tracheostomy tube placement which was currently capped had presented to the hospital for hydroureter, cystitis and hematuria. Patient was treated with antibiotics and underwent cystoscopy. Urinary symptoms resolved. After treatment with cystitis and patient had under gone cystoscopy the tracheostomy tube was removed. Patient was observed in the hospital for 24 hours after removal of tracheostomy tube. The patient was there after discharge to rehab in stable condition Discharge Exam - Head Exam Head Exam: ATRAUMATIC, NORMAL INSPECTION, NORMOCEPHALIC - Eye Exam Eye Exam: Normal appearance - ENT Exam ENT Exam: Mucous Membranes Moist - Neck Exam Additional comments: trach site clean - Respiratory Exam Respiratory Exam: Clear to PA & Lateral - Cardiovascular Exam Cardiovascular Exam: REGULAR RHYTHM - GI/Abdominal Exam GI & Abdominal Exam: Normal Bowel Sounds, Soft - Extremities Exam Extremities exam: normal inspection Discharge Plan - Follow Up Plan Condition: FAIR Disposition: TRANSF TO SNF Instructions: Urinary Tract Infection in Men (DC), Urinary Tract Infection in Men (GEN), Acute Hematuria (DC), Acute Abdominal Pain (DC), Acute Abdominal Pain (GEN) Additional Instructions: Patient is stable for discharge to rehab per Dr. Reid Patient will continue home medications as tolerated. Patient is to follow up with PMD upon discharge. Patient is to follow up with urologist, Dr. Meade upon discharge. Patient will be discharged with doxycycline 100 mg PO QD for 6 weeks Referrals: Sylvia Reid MD [Staff Provider] - Nic Meade MD [Staff Provider] -
--- NOTE | 2017-06-07 08:24 | OP ---
PROCEDURE DATE: 05/04/2017 UROLOGY OPERATIVE NOTE PREOPERATIVE DIAGNOSIS: Voiding dysfunction, hematuria. POSTOPERATIVE DIAGNOSIS: Voiding dysfunction, hematuria. PROCEDURE: Cystoscopy. SURGEON: Nick Meade MD COMPLICATIONS: There were no complications. SPECIMENS: No specimens. INDICATION: See history and physical, previous other consult notes. Risks, benefits discussed with the patient at length. PROCEDURE IN DETAIL: Patient was brought to the OR, placed on the OR table. Routine monitors were placed. Time-out was called. We confirmed the patient and positioning. Cystoscope was introduced via the urethra. Anterior urethra normal. No strictures. No obvious abnormalities. No biopsies taken. No specimen. Patient tolerated without complications. Nick Meade MD
== END 2017-05-06 14:23 | DRG 690 ==
LOC: C.ER 22:28 → C.9E 04-30 02:01 → C.3T 04-30 15:49
PROVIDERS: ADMIT Internal Medicine Nephrology; ATTEND Internal Medicine Nephrology
PROC: 0TJB8ZZ Inspection of Bladder, Via Natural or Artificial Opening Endoscopic (ICD-10-PCS; principal; 2017-05-04 14:00)
DX: N30.01 Acute cystitis with hematuria (principal); N13.4 Hydroureter; I48.91 Unspecified atrial fibrillation; Z93.0 Tracheostomy status; E83.52 Hypercalcemia; I12.9 Hypertensive chronic kidney disease with stage 1 through stage 4 chronic kidney disease, or unspecified chronic kidney disease; N18.9 Chronic kidney disease, unspecified; Z86.73 Personal history of transient ischemic attack (TIA), and cerebral infarction without residual deficits; Z87.01 Personal history of pneumonia (recurrent); Z87.891 Personal history of nicotine dependence